=== PATIENT | male | born 1960 | race Caucasian/White ===

== ENCOUNTER 2017-12-08 14:50 | Inpatient (IN) | payer BC ==
--- OUTSIDE RECORDS SUMMARY | 2017-12-08 15:19 | XMS REPORT ---
:1960 External Reference #:[id number] Author Organization [employer] Address [address] [place] [address] [place] [address] Phone [phone] Care Team Providers Name Role Phone Rufus Cash MD Primary Care Physician Unavailable Payers Type Date Identification Numbers Payment Provider Subscriber Workers Compensation Onset: Policy Number: Abilio Borja 2017 [id number] [employer] PayID: [id number] [facility] [address] [place] [address] Medigap Part B Policy Number: [id number] BS Facets Peter Borja PayID: [id number] [address] [address] [place] [address] Problems Date Description Provider Status Onset: 11/14/2017 Contusion of left wrist, subsequent Michael Dunaway M.D. Active encounter Onset: 10/17/2017 Sprain of other part of left wrist and Michael Dunaway M.D. 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 ETOH Use Drinks Alcoholic Beverages Rarely Smoking Patient is a current smoker, smokes every day Recreational Drug Use Denies Drug Use Exercise Type/Frequency Exercises rarely Allergies, Adverse Reactions, Alerts Date Description Reaction Status Severity Comments 10/17/2017 Morphine active Medications Medication Date Status Form Strength Qnty SIG Indications Ordering Provider Omeprazole Active Capsules DR 20mg 1 by Unknown 000 mouth every day Aspirin Active Chewtabs 81mg 1 by Unknown Childrens 000 mouth every day Sucralfate 00/00/0 Active Tablets 1gm 1 tab Unknown 000 twice a day Augmentin Active Tablets 875-125mg 1 tablet Unknown 000 by mouth q12 hours for 10 days Tessalon Active Capsules 100mg 1-2 by Unknown Perles 000 mouth three times a day as needed Gallbladder Hx Pt. not Unknown Med 000 sure of name of med Vital Signs Date Vital Result Comment 12/08/2017 Height 66 inches 5'6" Weight 171.00 lb Heart Rate 80 /min BP Systolic 156 mmHg BP Diastolic 86 mmHg Respiratory Rate 16 /min Body Temperature 97.9 F BMI (Body Mass Index) 27.6 kg/m2 12/05/2017 Height 66 inches 5'6" Weight 174.00 lb Heart Rate 72 /min BP Systolic Recheck 132 mmHg BP Diastolic Recheck 84 mmHg Respiratory Rate 16 /min Body Temperature 97.4 F BMI (Body Mass Index) 28.1 kg/m2 11/14/2017 Height 66 inches 5'6" Weight 178.00 lb Heart Rate 76 /min BP Systolic Recheck 132 mmHg BP Diastolic Recheck 84 mmHg Respiratory Rate 16 /min Body Temperature 97.8 F BMI (Body Mass Index) 28.7 kg/m2 10/31/2017 Height 66 inches 5'6" Weight 178.00 lb Heart Rate 76 /min BP Systolic Recheck 124 mmHg BP Diastolic Recheck 78 mmHg Respiratory Rate 16 /min Body Temperature 97.8 F BMI (Body Mass Index) 28.7 kg/m2 10/17/2017 Height 66 inches 5'6" Weight 169.00 lb Heart Rate 76 /min BP Systolic Recheck 132 mmHg BP Diastolic Recheck 84 mmHg Respiratory Rate 16 /min Body Temperature 97.8 F BMI (Body Mass Index) 27.3 kg/m2 Results Description No Information Procedures Date CPT Code Description Status 12/05/2017 46518 Short Arm Cast Application Completed Encounters Type Date Location Provider CPT E/M Dx Office Visit 11/14/2017 [facility] Michael Dunaway 84211 S60.212D 3:00p Of [facility] S63.8x2D Office Visit 10/31/2017 8:45a [facility] Michael Dunaway 05146 S63.8x2D Of [facility] Lobato M.D. Office Visit 10/17/2017 11:30a [facility] Michael Dunaway, 50746 S63.8x2A Of [facility] AT [facility] Plan of Care Future Appointment(s):12/26/2017 2:45 pm - Michael Dunaway M.D. at [facility] AT Wuuhhsuv45/12/2018 - Umer Tello MDK62.5 Hemorrhage of anus and rectum
--- OUTSIDE RECORDS SUMMARY | 2017-12-08 15:20 | XMS REPORT ---
:1960 External Reference #:[id number] Author Organization [employer] Address [address] [place] [address] [place] [address] Phone [phone] Care Team Providers Name Role Phone Wilton Torres MD Primary Care Physician Unavailable Payers Type Date Identification Numbers Payment Provider Subscriber Workers Compensation Onset: Policy Number: Abilio Borja 2017 [id number] [employer] PayID: [id number] [facility] [address] [place] [address] Problems Date Description Provider Status Onset: 11/14/2017 Contusion of left wrist, subsequent Michael Dunaway M.D. Active encounter Onset: 10/17/2017 Sprain of other part of left wrist and Michael Dunaway M.D. 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 not Unknown 000 sure of name of med Aspirin Active Chewtabs 81mg 1 by Unknown Childrens 000 mouth every day Vital Signs Date Vital Result Comment 12/05/2017 Height 66 inches 5'6" Weight 174.00 [...] Procedures Date CPT Code Description Status 12/05/2017 03982 Short Arm Cast Application Completed Encounters Type Date Location Provider CPT E/M Dx Office Visit 11/14/2017 [facility] Michael Dunaway 76647 S60.212D 3:00p Of [facility] AT [facility] S63.8x2D Office Visit 10/31/2017 8:45a [facility] Michael Dunaway 90495 S63.8x2D Of [facility] AT [facility] Office Visit 10/17/2017 11:30a [facility] Michael Dunaway 12809 S63.8x2A Of [facility] AT [facility] Plan of Care Future Appointment(s):12/26/2017 2:45 pm - Michael Dunaway M.D. at [facility] AT Xsjrhwot86/09/2018 - Michael Dunaway M.D.S63.8x2D Sprain of other part of left wrist and hand, subs encntrFollow up:3 weeks
--- OUTSIDE RECORDS SUMMARY | 2017-12-08 15:20 | XMS REPORT ---
:1960 External Reference #:[id number] Author Organization [employer] Address [address] [place] [address] Phone [phone] Care Team Providers Name Role Phone Wilton Torres MD Primary Care Physician Unavailable Payers Type Date Identification Numbers Payment Provider Subscriber Workers Compensation Onset: Policy Number: Abilio Borja 2017 [id number] [employer] [address] [facility] [address] [place] [address] Problems Date Description Provider Status Onset: 11/14/2017 Contusion of left wrist, subsequent Michael Dunaway M.D. Active encounter Onset: 10/17/2017 Sprain of other part of left wrist and Michael Dunaway M.D. 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 Office Visit 10/17/2017 [facility] Michael Dunaway, 20920 S63.8x2A 11:30a Of [facility] AT [facility] Plan of Care Future Appointment(s):12/05/2017 2:30 pm - Michael Dunaway M.D. at [facility] AT Hznrdcsz65/18/2018 - Michael Dunaway M.D.S60.212D Contusion of left wrist, subsequent munuycdhyY13.8x2D Sprain of other part of left wrist and hand, subs encntrFollow up:2 to 3 weeksRecommendations:Ice the wrist every night
[2017-12-08 16:30] LABS: ABS Basophils 0.1 10^3/ul (0-0.2); ABS Eosinophils 0.3 10^3/ul (0-0.6); ABS Lymphocytes 3.4 10^3/ul (1.0-4.8); ABS Monocytes 0.8 10^3/ul (0-0.8); ABS Neutrophils 5.9 10^3/ul (1.5-7.7); ABS Nucleated RBC 0 10^3/ul; Hematocrit 31 % (42-52); Hemoglobin 10.5 g/dl (14.0-18.0); Lymphocyte % 32.4 % (25-47); Mean Corpuscular HGB Conc 34 g/dl (31-36); Mean Corpuscular Hemoglobin 30 pg (27-31); Mean Corpuscular Volume 89 fL (80-94); Mean Platelet Volume 7.5 um3 (7.4-10.4); Nucleated Red Blood Cells % 0.1; Platelet Count 373 10^3/ul (150-450); Red Blood Count 3.46 10^6/ul (4.00-5.40); Red Cell Distribution Width 14 % (10.5-15); White Blood Count 10.4 10^3/ul (3.5-10.8)
[2017-12-08 16:42] LABS: INR 0.92 (0.77-1.02)
[2017-12-08 16:48] LABS: EGFR Non-African American 91.7 (>60)
--- NOTE | 2017-12-08 17:11 | ED ---
GI/ HPI - HPI Summary HPI Summary: Patient is a 56 y/o M w/ c/o maroon colored blood from rectum suddenly onsetting at 1515 two days ago. , Candis, is present in the room. He states that he has been filling the toilet with blood and notes that he soaked a blanket with blood last night. Past episodes of similar Sx are reported but " not like this". He denies abdominal pain, vomiting, fever but notes that patient has a high pain tolerance. Patient states he was seen by Dr. Cash in [place] who sent him to see Dr. Tello. Dr. Tello believes no surgical intervention is needed, sent patient to ED for treatment today when he noted maroon stool. PMHx of diverticulitis is endorsed, GI bleed Hx is denied. PMHx of bladder CA is noted, no chemo, no radiation, just surgery was done. PSHx of bowel resection in [place] due to diverticulitis, cholecystectomy, appendectomy , right elbow and right shoulder surgery, middle finger "sewn back on" and L4- L5 microdiscectomy are reported. He also reports Hx of hemorrhoids and banding of hemorrhoids. Patient has had bronchitis and a cough for the past three weeks but has not been taking his antibiotics until recently, stating he took amoxicillin of his 's for the past four days. He smokes, rarely consumes alcohol, denies other substances usage. FHx of colon cancer is denied, father had angina. FMHx of stroke is also noted. On triage, pain is denied, nothing is noted to aggravate/alleviate Sx. Home medications and allergies reviewed. Allergies/Adverse Reactions: Allergies Allergy/AdvReac Type Severity Reaction Status Date / Time morphine Allergy Nausea And Verified 12/08/17 15:01 Vomiting Home Medications: Home Medications Amoxicillin/Clavulanate TAB* [Augmentin TAB 875*] 875 mg PO BID 12/08/17 [ History Confirmed 12/08/17] Aspirin EC TAB* [Ecotrin EC Low Dose 81 MG*] 81 mg PO DAILY PRN 12/08/17 [ History Confirmed 12/08/17] Benzonatate CAP* [Tessalon 100 MG CAP*] 200 mg PO TID PRN 12/08/17 [History Confirmed 12/08/17] Ibuprofen TAB* [Advil TAB*] 200 mg PO Q8H PRN 12/08/17 [History Confirmed ] Omeprazole CAP* [Prilosec CAP* 20 MG] 20 mg PO DAILY 12/08/17 [History Confirmed 12/08/17] Sucralfate TAB* [Carafate*] 1 gm PO ACHS 12/08/17 [History Confirmed 12/08/17] - History of Current Complaint Chief Complaint: EDGIBleed Time Seen by Provider: 12/08/17 16:55 Stated Complaint: RECTAL BLEEDING Hx Obtained From: Patient, Family/Cam Maker - , Other: - Dr. Larry states Dr. Tello advised no surgical intervention needed. Onset/Duration: Started Days Ago - onset two days ago, Atraumatic, Still Present Timing: Constant Severity: Moderate Current Severity: None Pain Intensity: 0 Location of Pain: None Associated Signs and Symptoms: Positive: Blood w/Stool - he states he is just producing maroon colored blood when he has bowel movement, Cough. Negative: Vomiting, Fever, Abdominal Pain Aggravating Factor(s): Nothing Alleviating Factor(s): Nothing - Allergy/Home Medications Allergies/Adverse Reactions: Allergies Allergy/AdvReac Type Severity Reaction Status Date / Time morphine AdvReac Nausea And Verified 12/10/17 19:59 Vomiting Home Medications: Home Medications Omeprazole CAP* [Prilosec CAP* 20 MG] 20 mg PO DAILY 12/08/17 [History Confirmed 12/08/17] Sucralfate TAB* [Carafate*] 1 gm PO ACHS 12/08/17 [History Confirmed 12/08/17] PMH/Surg Hx/FS Hx/Imm Hx Previously Healthy: No Respiratory History: Reports: Other Respiratory Problems/Disorders - bronchitis GI History: Reports: Other GI Disorders - POSITIVE: diverticulitis, hemorrhoids NEGATIVE: GI bleed Sensory History: Denies: Hx Legally Blind Opthamlomology History: Denies: Hx Legally Blind - Surgical History Surgery Procedure, Year, and Place: bowel resection in [place] due to diverticulitis, cholecystectomy, appendectomy, right elbow and right shoulder surgery, middle finger sewn back on and L4-L5 microdiscectomy - Immunization History Immunizations Up to Date: Yes Infectious Disease History: No Infectious Disease History: Denies: Traveled Outside the [place] in Last 30 Days - Family History Known Family History: Positive: Other - father with angina, FHx of stroke, no FHx of colon CA - Social History Lives: With Family Alcohol Use: Rare Substance Use Type: Reports: None Smoking Status (MU): Heavy Every Day Tobacco Smoker Type: Cigarettes Review of Systems Negative: Fever Cardiovascular: Negative Positive: Cough Positive: Other - maroon colored blood with bowel movement . Negative: Abdominal Pain, Vomiting Musculoskeletal: Negative Skin: Negative Neurological: Negative Psychological: Normal All Other Systems Reviewed And Are Negative: Yes Physical Exam - Summary Physical Exam Summary: Appearance: Well-appearing, no pain distress, well-nourished, harsh congested cough, tachycardic Skin: Warm, color reflects adequate perfusion, dry Head: Normal Head/Face inspection, atraumatic Eyes: Conjunctiva clear ENT: Normal inspection Neck: Supple, no nodes, no JVD Respiratory: Lungs clear, normal breath sounds, no respiratory distress Cardio: tachycardic, No murmur, pulses normal, brisk capillary refill Abdomen: Soft, nontender, no masses, no guarding, no rebound, non-distended Bowel sounds: Present; rectal exam was done with Latricia as grain broker and market operator: no external hemorrhoids, prostate normal, sohail stool, stool GUAIAC +. Musculoskeletal: Strength Intact/ROM intact, no calf tenderness, no edema. Psychological: Normal Neuro: Alert, muscle tone normal, no focal deficit Triage Information Reviewed: Yes Vital Signs On Initial Exam: Initial Vitals Temp Pulse Resp BP Pulse Ox 97.0 F 103 16 162/99 98 12/08/17 14:56 12/08/17 14:56 12/08/17 14:56 12/08/17 14:56 12/08/17 14:56 Vital Signs Reviewed: Yes Diagnostics - Vital Signs Vital Signs Temp Pulse Resp BP Pulse Ox 12/08/17 14:56 97.0 F 103 16 162/99 98 - Laboratory Lab Results: Lab Results 12/08/17 12/08/17 12/08/17 Range/Units 16:19 16:19 16:19 WBC 10.4 (3.5-10.8) 10^3/ul RBC 3.46 L (4.00-5.40) 10^6/ul Hgb 10.5 L (14.0-18.0) g/dl Hct 31 L (42-52) % MCV 89 (80-94) fL MCH 30 (27-31) pg MCHC 34 (31-36) g/dl RDW 14 (10.5-15) % Plt Count 373 (150-450) 10^3/ul MPV 7.5 (7.4-10.4) um3 Neut % (Auto) 56.5 (38-83) % Lymph % (Auto) 32.4 (25-47) % [place] % (Auto) 7.5 H (0-7) % Eos % (Auto) 3.0 (0-6) % Baso % (Auto) 0.6 (0-2) % Absolute Neuts (auto) 5.9 (1.5-7.7) 10^3/ul Absolute Lymphs (auto) 3.4 (1.0-4.8) 10^3/ul Absolute Monos (auto) 0.8 (0-0.8) 10^3/ul Absolute Eos (auto) 0.3 (0-0.6) 10^3/ul Absolute Basos (auto) 0.1 (0-0.2) 10^3/ul Absolute Nucleated RBC 0 10^3/ul Nucleated RBC % 0.1 INR (Anticoag Therapy) 0.92 (0.77-1.02) APTT 33.3 (26.0-36.3) seconds Sodium 136 (135-145) mmol/L Potassium 4.1 (3.5-5.0) mmol/L Chloride 105 (101-111) mmol/L Carbon Dioxide 27 (22-32) mmol/L Anion Gap 4 (2-11) mmol/L BUN 20 (6-24) mg/dL Creatinine 0.86 (0.67-1.17) mg/dL Est GFR ( Amer) 110.9 (>60) Est GFR (Non-Af Amer) 91.7 (>60) BUN/Creatinine Ratio 23.3 H (8-20) Glucose 103 H (70-100) mg/dL Calcium 8.6 (8.6-10.3) mg/dL Total Bilirubin 0.30 (0.2-1.0) mg/dL AST 12 L (13-39) U/L ALT 8 (7-52) U/L Alkaline Phosphatase 68 (34-104) U/L Total Protein 5.9 L (6.4-8.9) g/dL Albumin 3.9 (3.2-5.2) g/dL Globulin 2.0 (2-4) g/dL Albumin/Globulin Ratio 2.0 (1-3) Result Diagrams: 12/10/17 05:57 12/09/17 04:31 Lab Statement: Any lab studies that have been ordered have been reviewed, and results considered in the medical decision making process. - Radiology CXR Xray Interpretation: No Acute Changes Radiology Interpretation Completed By: Radiologist - CXR showed no radiographic evidence for acute cardiopulmonary abnormality on this portable CXR. This report was reviewed by ed physician. - EKG 1725 Cardiac Rate: NL - rate of 93 bpm EKG Rhythm: Sinus Rhythm ST Segment: Non-Specific Ectopy: None EKG Interpretation: nl AVIVCT, nl QTc, nl axis, poor Rwave progress V1 and V2, no acute changes EKG Comparison: Other - no priors to compare Re-Evaluation - Re-Evaluation First Eval Re-Evaluation Time: 17:55 Change: Unchanged Comment: No abdominal pain, agrees to admission, advised to remain NPO GIGU Course/Dx - Course Assessment/Plan: Patient is a 56 y/o M w/ c/o maroon colored blood from rectum suddenly onsetting at 1515 two days ago. , Candis, is present in the room. He states that he has been filling the toilet with blood and notes that he soaked a blanket with blood last night. Past episodes of similar Sx are reported but "not like this". He denies abdominal pain, vomiting, fever but notes that patient has a high pain tolerance. Patient states he was seen by Dr. Cash in [place] who sent him to see Dr. Tello. Dr. Tello believes no surgical intervention is needed, sent patient to ED for treatment today. PMHx of diverticulitis is endorsed, GI bleed Hx is denied. PMHx of bladder CA is noted, no chemo, no radiation, just surgery was done. PSHx of bowel resection in [place] due to diverticulitis.. He also reports Hx of hemorrhoids and banding of hemorrhoids. Patient has had bronchitis and a cough for the past three weeks but has not been taking his antibiotics until recently , stating he took his 's amoxicillin for the past four days.. On physical exam, patient is noted not to be in pain distress, has a harsh congested cough, and is tachycardic. Abdomen is Soft, nontender, no masses, no guarding, no rebound, non-distended. Rectal exam was done with Daisy as grain broker and market operator: no external hemorrhoids, prostate normal, sohail stool, stool GUAIAC positive. CXR showed no radiographic evidence for acute cardiopulmonary abnormality on this portable CXR. This report was reviewed by ed physician. EKG showed NSR w/ rate of 93 bpm, nl AVIVCT, nl QTc, nl axis, poor Rwave progress V1 and V2, no acute changes, no priors to compare. Labs showed RBC 3.46, Hgb 10.5, Hct 31, AST 12, BUN/creatinine ratio 23.3. Stool occult blood was positive. 1713 Patients case discussed with Dr. Delaney, he recommends admission. 1718 Dr. Guerrero was consulted on patient case, Dr. Guerrero accepts for admission. Patient is agreeable with admission. Dx of GI bleed, bronchitis. - Diagnoses Differential Diagnoses - Male: Colitis, Enterocolitis, Esophagitis/Gastritis, Gastroenteritis (Bacterial), Gastroenteritis (Viral), Hemorrhoids, Ischemic Bowel, Ulcerative Colitis/Crohn's Disease Provider Diagnoses: GI bleed, Bronchitis - Physician Notifications Discussed Care Of Patient With: Young Delaney Time Discussed With Above Provider: 17:13 Instructed by Provider To: Other - 1713 Patients case discussed with Dr. Delaney, he recommends admission. 1718 Dr. Guerrero was consulted on patient case, Dr. Guerrero accepts for admission. Patient is agreeable with admission. - Critical Care Time Critical Care Time: 30-74 min - 30 minutes Discharge - Sign-Out/Discharge Documenting (check all that apply): Patient Departure - admit All imaging exams completed and their final reports reviewed: Yes - Discharge Plan Condition: Stable Disposition: ADMITTED TO [facility] - Billing Disposition and Condition Condition: STABLE Disposition: Admitted to [facility] - Attestation Statements Document Initiated by Scribe: Yes Documenting Scribe: Arnie Romero Provider For Whom Scribe is Documenting (Include Credential): Allie Cole MD Scribe Attestation: Arnie Singleton , scribed for Allie Cole MD on 12/11/17 at 2201. Scribe Documentation Reviewed: Yes Provider Attestation: The documentation as recorded by the scribe, Arnie Romero accurately reflects the service I personally performed and the decisions made by me, Allie Cole MD
--- NOTE | 2017-12-08 17:36 | RAD ---
INDICATION: GI bleed COMPARISON: None. TECHNIQUE: Single AP portable view of the chest was obtained. FINDINGS: Image quality is compromised due to the relative inferiority of a portable chest x-ray. The heart and mediastinum exhibit normal size and contour. The lungs are grossly clear. There is no evidence of a large pleural effusion. Visualized bones are normal for the patient's age. IMPRESSION: No radiographic evidence for acute cardiopulmonary abnormality on this portable chest x-ray.
[2017-12-08] MEDS ORDERED: Ondansetron INJ* 2 MG/ML VIAL IV PRN (18:17)
[2017-12-08] MEDS ORDERED: Acetaminophen TAB* 325 MG PO PRN (18:17)
[2017-12-08] MEDS ORDERED: Mouth Piece, Nicotine* 1 EACH CARTRIDGE INH PRN ×2 (18:43)
[2017-12-08] MEDS ORDERED: Nicotine Inhaler* 10 MG AMP INH PRN (18:43)
[2017-12-08] MEDS: NS 0.9% 1000 ML* 1,000 ML IV SCH (20:07)
--- NOTE | 2017-12-08 22:46 | HP ---
AMENDED REPORT NOW INCLUDES COSIGNER DESIGNATION CC: Dr. Cash.* HISTORY AND PHYSICAL: DATE OF ADMISSION: 12/08/17 PRIMARY CARE DOCTOR: Dr. Cash in [place]. MY ATTENDING PHYSICIAN WHILE IN THE HOSPITAL: Jovany Zambrano MD* (dictated by ANGELINE Nixon). CHIEF COMPLAINT: Hematochezia. HISTORY OF PRESENT ILLNESS: Mr. Borja is a 56-year-old male with past medical history significant only for recurrent diverticulitis with colon resection, degenerative disc disease and complications who comes to the emergency department with 3 days of hematochezia including bright red blood, maroon- colored stools and blood clots. Patient denies dizziness, chest pain, shortness of breath, dyspnea on exertion. The patient had the cough this has been ongoing for 3 weeks. The patient was prescribed antibiotics and antitussives for this. Patient takes an aspirin, which he stopped 3 days ago. The patient was prescribed ibuprofen, but does not take any [id number] pain medications. The patient has never had an episode like this. The patient has had several episodes of recurrent diverticulitis and has had a partial colectomy for this. The patient had a recent colonoscopy with his colectomy, which was in 2011 or 2012. The patient has had minor rectal bleeding in the past, which he associates with hemorrhoids and has never been persistent. The patient has had his gallbladder out and had an appendectomy. The patient has no family history of premature colon cancer. The patient has no fevers, chills , nausea, vomiting, abdominal pain. The patient had numerous bowel movements 3 days ago, fewer bowel movements yesterday and has not had any yet today. The patient states his bowel movements usually occur in the evening. The patient had to leave the interview to go to the bathroom, but states that he did not have bowel movement, he just had blood oozing from his rectum. Due to the concern for GI bleed with decreased hemoglobin, we are asked to evaluate for admission. PAST MEDICAL HISTORY: Recurrent diverticulitis, status colectomy, degenerative disk disease, status post microdiscectomy, GERD. PAST SURGICAL HISTORY: Colon resection, L4-L5 microdiscectomy, colonoscopy, appendectomy, and multiple musculoskeletal surgeries. HOME MEDICATIONS: 1. Omeprazole 20 mg p.o. daily. 2. Aspirin 81 mg p.o. daily, stopped 3 days ago. 3. Sucralfate 1 g p.o. q.h.s. Recently started medications: 1. Augmentin 875 mg p.o. b.i.d. 2. Benzonatate 100 mg p.o. t.i.d. as needed. 3. Ibuprofen 10 mg p.o. q.8 hours as needed. ALLERGIES: MORPHINE. FAMILY HISTORY: The patient's father is alive, but has chronic stable angina. The patient's mother is alive. The patient has a brother who has an AL on stroke. The patient's other siblings are healthy. The patient states that the stroke runs in his family including with his grandparents. SOCIAL HISTORY: The patient's smokes 3 quarters a pack a day. The patient drinks alcohol rarely and denies illicit drug use. The patient works at [employer]. The patient is , has 2 children. Surrogate decision maker will be his , Ese Borja. REVIEW OF SYSTEMS: A 14-point review of systems was reviewed and is negative except as above including negative for night sweats, weight loss, change in caliber of stools or other constitutional symptoms. PHYSICAL EXAMINATION GENERAL: The patient is a 56-year-old male, who appears stated age and sitting comfortably in bed in no acute distress. VITAL SIGNS: At the time of evaluation, temperature 97.0, pulse rate 92, respiratory rate 16, oxygen saturation 93% on room air, blood pressure 162/99. HEENT: Head: Normocephalic, atraumatic. Sclerae anicteric. No conjunctival injection. Nasal mucosa moist. Oral mucosa moist. No pharyngeal erythema, discharge, or exudate. NECK: Supple, nontender. No lymphadenopathy. No carotid bruit auscultated. No JVD. RESPIRATORY: Extra wheezes in bilateral middle lobes, diminished throughout. No other adventitious lung sounds. HEART: Regular rate and rhythm. No clicks, murmurs, gallops or rubs. Pulses 2 + in bilateral dorsalis pedis, posterior tibialis, and radial areas. ABDOMEN: Slight tenderness to palpation in the left lower quadrant. Hyperactive bowel sounds present in all 4 quadrants. No hepatosplenomegaly. No abdominal bruits auscultated. No hepatojugular reflux. GENITOURINARY: No suprapubic or CVA tenderness. SKIN: Clean, dry, intact. No rash. NEUROLOGIC: Cranial nerves II through XII intact. No focal deficits. Alert and oriented x3. PSYCHIATRIC: Pleasant and cooperative. DIAGNOSTIC STUDIES/LAB DATA: White blood cell count 10.4, hemoglobin 10.5, platelet count 373, INR 0.92, aPTT 33.3. Sodium 136, potassium 4.9, chloride 105, carbon dioxide 27, anion gap 4, BUN 20, creatinine 0.86, glucose 103, calcium 0.6, bilirubin 0.3, AST 12, ALT 8, alkaline phosphatase 68. Protein 5.9 , albumin 2.9, globulin 2.0. Chest x-ray: No radiographic evidence of cardiopulmonary abnormality. Electrocardiogram on 12/08/17 read as normal sinus rhythm, normal axis, no ST segment abnormalities, rate of 93, QTc of 419, possible left atrial enlargement. No other abnormalities. ASSESSMENT AND PLAN: Mr. Borja is a 56-old-male with past medical history significant only for multiple episodes of diverticulitis and tobacco abuse, who presented to the emergency department with 3 days of hematochezia. The patient is hemodynamically stable. The patient's hemoglobin is moderately reduced. The patient's bleeding is likely diverticular in origin. The patient will be admitted to the hospital for a gastrointestinal consult and close monitoring of serial hemoglobin, hematocrit and possible intervention if needed. 1. Gastrointestinal bleed. The patient's gastrointestinal bleed as above this is likely diverticular in origin. The patient has known diverticulosis due to history of recurrent diverticulitis. The patient has had a colonoscopy within past 6 years, this is unlikely due to colon cancer. However, patient would likely benefit from outpatient colonoscopy on a nonemergent basis. The patient will be seen in consultation by Gastroenterology. The patient will have hemoglobin, hematocrit every 6 hours. The patient will be transfused as needed. The patient will be given fluids for hemodynamic support. The patient is not on any blood thinners. The patient stopped his aspirin 6 days ago. The patient will have his dose of omeprazole dose doubly due to the possibility of quick transit upper gastrointestinal bleed, however, this is unlikely due to presence of hematochezia and unlikely source of gastrointestinal bleeding and there is no indication for imaging such as tagged red blood cell scan or CT angiogram of the abdomen at this time. The patient will be n.p.o. except for sips of water with medications due the need for possible intervention given acute decompensation. 2. Gastroesophageal reflux disease/complications from cholecystectomy. We will continue patient's omeprazole at double dose and sucralfate, the patient currently asymptomatic. 3. DVT prophylaxis. The patient will have SCDs in the setting of gastrointestinal bleed. The patient is at moderate risk. 4. Tobacco abuse. The patient will have nicotine inhaler available as needed. 5. Bronchitis. The patient was diagnosed with bronchitis with his primary care doctor yesterday and started on antibiotics. We will check procalcitonin x2. The patient will be continue on anti-tussives and mucolytics while in the hospital. If the patient's procalcitonin comes back positive, antibiotics should be continued. If it does not, it should be considered to stop these antibiotics. 6. Code status. The patient would like to be a full code. The patient's surrogate decision maker will be his as above. 7. Disposition: The patient is admitted inpatient. The patient will likely be here for greater than 2 midnights. TIME SPENT: Approximately 60 minutes were spent on this admission, 30 of which was spent [id number] with the patient obtaining history and physical. This plan was discussed with my attending, Dr. Jovany Zambrano, he is in agreement. ANGELINE NIXON [id number]/[facility] #: [id number] MTDD
[2017-12-08] MEDS: guaiFENesin ER TAB 600 MG PO SCH (23:45)
[2017-12-08] MEDS: Sucralfate TAB* 1 GM PO SCH (23:46)
[2017-12-08] MEDS: Amoxicillin/Clavulanate TAB* 875 MG PO SCH (23:46)
[2017-12-08] MEDS: Benzonatate CAP* 100 MG PO PRN (23:46)
[2017-12-09 00:28] LABS: Hematocrit 26 % (42-52); Hemoglobin 9.1 g/dl (14.0-18.0)
[2017-12-09] MEDS: NS 0.9% 1000 ML* 1,000 ML IV SCH ×3 (04:37→20:30)
[2017-12-09 04:55] LABS: ABS Basophils 0.1 10^3/ul (0-0.2); ABS Eosinophils 0.4 10^3/ul (0-0.6); ABS Monocytes 0.7 10^3/ul (0-0.8); ABS Nucleated RBC 0 10^3/ul; Eosinophil % 5.2 % (0-6); Hematocrit 27 % (42-52); Lymphocyte % 36.9 % (25-47); Mean Corpuscular HGB Conc 34 g/dl (31-36); Mean Corpuscular Hemoglobin 30 pg (27-31); Mean Corpuscular Volume 89 fL (80-94); Mean Platelet Volume 7.6 um3 (7.4-10.4); Nucleated Red Blood Cells % 0.1; Platelet Count 335 10^3/ul (150-450); Red Blood Count 2.99 10^6/ul (4.00-5.40); Red Cell Distribution Width 15 % (10.5-15); White Blood Count 8.2 10^3/ul (3.5-10.8)
[2017-12-09 05:09] LABS: EGFR Non-African American 105.7 (>60)
[2017-12-09] MEDS: Benzonatate CAP* 100 MG PO PRN ×3 (07:32→20:26)
[2017-12-09] MEDS: guaiFENesin ER TAB 600 MG PO SCH (07:32)
[2017-12-09] MEDS: Amoxicillin/Clavulanate TAB* 875 MG PO SCH (07:32)
[2017-12-09] MEDS: Sucralfate TAB* 1 GM PO SCH ×4 (07:32→20:26)
--- NOTE | 2017-12-09 08:40 | PN ---
Subjective Date of Service: 12/09/17 Interval History: Mr Borja reports that he is feeling well this morning other than his harsh, non -productive cough. He denies abdominal pain or nausea. He has not had a bowel movement overnight. He does not feel lightheaded or dizzy with ambulation. He further denies chest pain or SOB. Objective Active Medications: Acetaminophen (Tylenol Tab*) 650 mg PO Q6H PRN Amoxicillin/Clavulanate Potassium (Augmentin Tab*) 875 mg PO BID SHANTA Benzonatate (Tessalon Cap*) 200 mg PO TID PRN Device (Nicotine Mouth Piece*) 1 each INH .USE WITH NICOTROL PRN Guaifenesin (Mucinex*) 1,200 mg PO BID SHANTA Sodium Chloride (Ns 0.9% 1000 Ml*) 1,000 mls @ 150 mls/hr IV PER RATE SHANTA Lactated Ringer's (Lactated Ringers 1000 Ml Bag*) 1,000 mls @ 0 mls/hr IV WIDE OPEN SHANTA Nicotine (Nicotine Inhaler*) 10 mg INH Q2H PRN Ondansetron HCl (Zofran Inj*) 4 mg IV Q6H PRN Sucralfate (Carafate*) 1 gm PO ACHS SHANTA Vital Signs: Temp Pulse Resp BP Pulse Ox 97.5 F 91 16 105/65 96 12/09/17 07:31 12/09/17 07:31 12/09/17 07:31 12/09/17 07:31 12/09/17 07:31 Oxygen Devices in Use Now: None Appearance: Male lying in bed in NAD Eyes: No Scleral Icterus Ears/Nose/Mouth/Throat: Mucous Membranes Moist Neck: Trachea Midline Respiratory: Symmetrical Chest Expansion and Respiratory Effort, Clear to Auscultation Cardiovascular: NL Sounds; No Murmurs; No JVD, No Edema Abdominal: NL Sounds; No Tenderness; No Distention Lymphatic: No Cervical Adenopathy Extremities: No Edema Skin: No Rash or Ulcers Neurological: Alert and Oriented x 3, NL Muscle Strength and Tone Nutrition: Taking PO's Result Diagrams: 12/09/17 04:31 12/09/17 04:31 Additional Lab and Data: . Microbiology and Other Data: . Assess/Plan/Problems-Billing Assessment: Mr. Borja is a 56 yo M with a PMH of recurrent diverticulitis s/p partial colectomy and GERD with recent diagnosis of bronchitis who was admitted on 12/08 with hematochezia and concern for lower GI diverticular bleeding with anemia. - Patient Problems (1) GI bleed Comment: - Hgb on arrival 10.5, now 9.0. SBP soft at 80-100 overnight, not tachycardic. - GI consult appreciated. Suspect diverticular bleed due to hx of diverticulitis. No abdominal pain, fever or leukocytosis to suggest diverticulitis. - Continue IV fluids. Monitor overnight, if stable will discharge with plan for outpatient colonoscopy. (2) Anemia Comment: - Due to acute blood loss from GI bleed. - Will transfuse for Hgb < 8 if symptomatic. (3) GERD (gastroesophageal reflux disease) Comment: - Continue omeprazole and sucralfate per home routine. (4) Bronchitis Comment: - Procalcitonin negative, afebrile, no leukocytosis, chest xray negative. Lungs clear to auscultation. - No evidence of bacterial component, stop antibiotics and continue antitussives. (5) DVT prophylaxis Comment: - SCDs. (6) Full code status Comment: Status and Disposition: Inpatient. Anticipate discharge to home when medically stable.
--- NOTE | 2017-12-09 13:48 | CONS ---
CC: Luis Alfredo Live CONSULTATION REPORT: DATE OF CONSULT: 12/09/17 REQUESTING PHYSICIAN: Dr. Cole in the emergency room. INDICATION: Diverticular bleed. NARRATIVE: Mr. Borja is a pleasant 56-year-old gentleman, who has a history of recurrent diverticul itis with a partial colectomy approximately 5 to 6 years ago. He states at that time he had a colonos copy that was his last colonoscopy and other than diverticulosis it was unremarkable. The patient st ates approximately 2 to 3 days ago he started having bright red blood per rectum and dark stools. He went to his primary care physician. The primary care physician then sent him to Dr. Tello for e valuation. Dr. Tello did a rectal exam and did not find any obvious source of bleeding, but did maroon stools and sent him to the emergency room. In the emergency room, the patient was found to alexis ve a hemoglobin of 10.5 and was admitted to the hospital. The patient denies any abdominal pain what soever. No nausea, no vomiting, no hematemesis. He rarely takes nonsteroidals. He states that he h as had bleeding, but never like this before. No fevers, no chills. He was admitted last night and g iven fluids. His hemoglobin has decreased to 9. He states that he did have a bowel movement this mo rning that was mainly just bloody clots. He is hungry. He denies any other symptoms. He had no oth er pain. PAST MEDICAL HISTORY: Significant for diverticulosis and herniated discs. PAST SURGICAL HISTORY: Surgeries include hemicolectomy, microdiscectomy, appendectomy. MEDICATIONS: Include: 1. Omeprazole. 2. Aspirin. 3. Carafate. 4. Augmentin. ALLERGIES: To MORPHINE. FAMILY HISTORY: Coronary artery disease, strokes. SOCIAL HISTORY: He continues to smoke cigarettes. I counseled him against this. Rarely drinks alcoh ol. REVIEW OF SYSTEMS: Twelve systems were reviewed and other than that mentioned in the HPI were unrema rkable. PHYSICAL EXAM: Temperature is 97.5, blood pressure is 105/65, pulse is 91, respiratory rate of 16, O 2 sat of 96%. General: Well-appearing male, lying flat in bed, alert, oriented, pleasant, fluent. HEENT: Mucous membranes are moist without lesions, ulcers, or exudate. Neck is supple. Trachea is midline. Head is normocephalic, atraumatic. Heart: Regular rate and rhythm. No murmurs, rubs, or gallops. Lungs: Clear to auscultation bilaterally. No wheezes, rales, or rhonchi. Abdomen is obes e. Positive bowel sounds. Soft, slight right-sided tenderness. He states that this is his usual pa in, has not changed at all. No rebound, no guarding. Skin is warm and dry. LABORATORY DATA: Of note, hemoglobin was 10.5 and has dropped to 9.1 at midnight and then 9.0 at 4:3 0 this morning, white count is 8.2, platelets are 335. INR is 0.92. BUN went from 20 to 14, creatin ine 0.86 to 0.76. ASSESSMENT AND PLAN: This is a pleasant 56-year-old gentleman presents with lower GI bleeding, likel y is diverticular in nature. Unlikely to be a malignancy or a polyp, does not appear to be hemorrhoi d from the surgical evaluation. He does need a colonoscopy at some point. He is recovering from bro nchitis right now. One would like to give that a little bit longer to recover. I think we can wait a few days for colonoscopy. I would like to let him eat today. If he does well meaning the bleeding slows down, hemoglobin remains stable, he can likely be discharged to home tomorrow and then he can follow up with me for an outpatient colonoscopy in the next 1 to 2 weeks. We will continue to follow along. [id number]/[facility] #: [id number]
[2017-12-09 15:01] LABS: Hematocrit 25 % (42-52); Hemoglobin 8.4 g/dl (14.0-18.0)
[2017-12-09] MEDS: GuaiFENesin DM* 5 ML UDC PO PRN ×2 (17:11→20:27)
[2017-12-09 17:54] LABS: Hematocrit 27 % (42-52); Mean Corpuscular HGB Conc 34 g/dl (31-36); Mean Corpuscular Hemoglobin 30 pg (27-31); Mean Corpuscular Volume 89 fL (80-94); Mean Platelet Volume 7.4 um3 (7.4-10.4); Platelet Count 356 10^3/ul (150-450); Red Blood Count 2.99 10^6/ul (4.00-5.40); Red Cell Distribution Width 14 % (10.5-15); White Blood Count 8.8 10^3/ul (3.5-10.8)
[2017-12-10 00:21] LABS: Hematocrit 25 % (42-52); Hemoglobin 8.6 g/dl (14.0-18.0)
[2017-12-10] MEDS: GuaiFENesin DM* 5 ML UDC PO PRN (03:22)
[2017-12-10] MEDS: NS 0.9% 1000 ML* 1,000 ML IV SCH (03:23)
[2017-12-10 06:19] LABS: Hematocrit 27 % (42-52); Hemoglobin 9.1 g/dl (14.0-18.0)
[2017-12-10] MEDS: Sucralfate TAB* 1 GM PO SCH (07:27)
--- NOTE | 2017-12-10 08:23 | PN ---
Subjective Date of Service: 12/10/17 Interval History: Mr. Borja denies complaint. He reports no further bowel movements or blood per rectum since yesterday. He denies chest pain, SOB, nausea, or abdominal pain. Objective Active Medications: Acetaminophen (Tylenol Tab*) 650 mg PO Q6H PRN Benzonatate (Tessalon Cap*) 200 mg PO TID PRN Device (Nicotine Mouth Piece*) 1 each INH .USE WITH NICOTROL PRN Guaifenesin/Dextromethorphan (Robitussin Dm*) 10 ml PO Q4H PRN Sodium Chloride (Ns 0.9% 1000 Ml*) 1,000 mls @ 150 mls/hr IV PER RATE SHANTA Nicotine (Nicotine Inhaler*) 10 mg INH Q2H PRN Ondansetron HCl (Zofran Inj*) 4 mg IV Q6H PRN Sucralfate (Carafate*) 1 gm PO ACHS SHANTA Vital Signs: Temp Pulse Resp BP Pulse Ox 97.9 F 79 16 127/59 96 12/10/17 03:16 12/10/17 03:16 12/10/17 03:16 12/10/17 03:16 12/10/17 03:16 Oxygen Devices in Use Now: None Appearance: Male sitting up in bed in NAD Eyes: No Scleral Icterus Ears/Nose/Mouth/Throat: Mucous Membranes Moist Neck: Trachea Midline Respiratory: Symmetrical Chest Expansion and Respiratory Effort, Clear to Auscultation Cardiovascular: NL Sounds; No Murmurs; No JVD, No Edema Abdominal: NL Sounds; No Tenderness; No Distention Extremities: No Edema Skin: No Rash or Ulcers Neurological: Alert and Oriented x 3, NL Muscle Strength and Tone Nutrition: Taking PO's Result Diagrams: 12/10/17 05:57 12/09/17 04:31 Additional Lab and Data: . Microbiology and Other Data: . Assess/Plan/Problems-Billing Assessment: Mr. Borja is a 56 yo M with a PMH of recurrent diverticulitis s/p partial colectomy and GERD with recent diagnosis of bronchitis who was admitted on 12/08 with hematochezia and concern for lower GI diverticular bleeding with anemia. - Patient Problems (1) GI bleed Comment: - Hgb on arrival 10.5, now 9.1. Not hypotensive or tachycardic. - GI consult appreciated. Suspect diverticular bleed due to hx of diverticulitis. No abdominal pain, fever or leukocytosis to suggest diverticulitis. - GI recommends discharge to home with close follow up outpatient for colonoscopy. (2) Anemia Comment: - Stable. - Due to acute blood loss from GI bleed. (3) GERD (gastroesophageal reflux disease) Comment: - Continue omeprazole and sucralfate per home routine. (4) Bronchitis Comment: - Procalcitonin negative, afebrile, no leukocytosis, chest xray negative. Lungs clear to auscultation. - No evidence of bacterial component, stop antibiotics and continue antitussives. (5) DVT prophylaxis Comment: - SCDs. (6) Full code status Comment: Status and Disposition: Inpatient. Discharge to home.
[2017-12-10 12:12] VITALS: BP 142/89
--- NOTE | 2017-12-10 12:20 | DS ---
AMENDED REPORT NOW INCLUDES DESIGNATED COSIGNER CC: Dr. Rufus Cash* [facility] MEDICINE DISCHARGE SUMMARY: DATE OF ADMISSION: 12/08/17 DATE OF DISCHARGE: 12/10/17 PRIMARY CARE PHYSICIAN: Dr. Rufus Cash. ATTENDING PHYSICIAN: Alexis Guerrero MD* (dictation provided by Rozina Galvin NP ) PRIMARY DIAGNOSES: 1. Lower GI bleed suspected diverticular in origin. 2. Acute blood loss anemia, stable. SECONDARY DIAGNOSES: 1. History of recurrent diverticulitis status post colectomy. 2. Degenerative disk disease. 3. Status post microdiskectomy. 4. Gastroesophageal reflux disease. MEDICATIONS AT THE TIME OF DISCHARGE: 1. Omeprazole 20 mg p.o. daily. 2. Sucralfate 1 g p.o. q.a.c. and h.s. 3. Benzonatate 200 mg p.o. t.i.d. p.r.n. 4. Guaifenesin DM 10 mL p.o. q.4 hours p.r.n. HOSPITAL COURSE: Mr. Borja is a 56-year-old with past medical history of diverticulitis, who presented to the hospital on 12/08/17 with concern for hematochezia. Please see the dictated H and P from Jovany aZmbrano MD for complete details. In brief, the patient states he had 3 days of bright red blood red and maroon-colored stools prior to arrival. He denied dizziness, chest pain, shortness of breath, or dyspnea on exertion, but did report an ongoing cough for the past 3 weeks. He had been prescribed antibiotics and antitussives the day prior to arrival to the ED for this cough. The patient did take aspirin daily, which he had stopped 3 days prior to admission. He denied dizziness or lightheadedness. In the emergency room, the patient had labs, which showed a hemoglobin of 10.5 with hematocrit of 31. His blood pressure was initially in the 160s systolically, but did fall shortly after arrival down into the 80s overnight. The patient was given aggressive IV fluid hydration. The following morning he had hemoglobin of 9.0 and 27. He was seen in consultation by Dr. Young Delaney from the gastroenterology team. He agreed based on the patient's history that this was likely diverticular in origin. The patient had 1 more bowel movement with blood clots noted during this hospitalization, but has none since yesterday. His hemoglobin and hematocrit have remained stable and this morning, they are 9.1 and 27. The patient is completely asymptomatic, ambulating in and around the hospital independently. His blood pressure is now 134/58 with the heart rate of 74. In regards to his cough, a chest xray was checked and was negative for evidence of pneumonia. He was afebrile and had no leukocytosis. His procalcitonin was 0.1. Therefore, antibiotics which were started outpatient were discontinued and antitussives were continued. Mr. Borja is medically stable for discharge to home. He will be following closely with Dr. Delaney who has recommended an outpatient colonoscopy. Again, he is asymptomatic. He has no nausea, vomiting, or abdominal pain. He has no evidence of infection to suggest diverticulitis. DISPOSITION: Home. DIET: Regular. ACTIVITY: As tolerated. FOLLOWUP PLANS: 1. Please follow up with Dr. Delaney. The patient is to call Monday if he does not hear from Dr. Delaney's office and has been provided with the phone number. 2. Please follow up with Dr. Rufus Cash's office in the next 3 to 7 days regarding his acute stay in the hospital. TIME SPENT: Approximately 60 minutes were spent on the discharge of this patient, more than half the time was spent with the patient at the bedside reviewing the events leading up to this hospitalization, and during this hospitalization performing the physical examination and reviewing the plan of care. ROZINA GALVIN NP [id number]/[facility] #: [id number] DANA
== END 2017-12-10 12:10 | disposition home or self-care (01) | DRG 244 ==
LOC: ED 14:50 → MED 18:19
PROVIDERS: ADMIT Internal Medicine; ATTEND Internal Medicine
DX: K57.31 Diverticulosis of large intestine without perforation or abscess with bleeding (principal); D62 Acute posthemorrhagic anemia; J40 Bronchitis, not specified as acute or chronic; K92.1 Melena; M51.36 Other intervertebral disc degeneration, lumbar region; K21.9 Gastro-esophageal reflux disease without esophagitis; F17.210 Nicotine dependence, cigarettes, uncomplicated; Z79.82 Long term (current) use of aspirin; Z79.899 Other long term (current) drug therapy; Z88.5 Allergy status to narcotic agent; Z82.3 Family history of stroke; Z82.49 Family history of ischemic heart disease and other diseases of the circulatory system
CPT/HCPCS: 36415; 71045; 80048; 80053; 82272; 83735; 84145; 85014; 85018; 85025; 85027; 85610; 85730; 86850; 86900; 86901; 93005; 99283; 99406; A9270-GY

== ENCOUNTER 2017-12-10 17:54 | Inpatient (IN) | payer BC ==
[2017-12-10] MEDS: NS 0.9% 1000 ML* 2,000 ML IV ONE (18:33)
--- NOTE | 2017-12-10 18:45 | ED ---
GI/ HPI - HPI Summary HPI Summary: The patient is a 56 y/o M presenting to [facility] accompanied by with a chief complaint of GI bleed starting today around 1500 after being discharged from the hospital this morning for the same symptoms. The bleeding started after he ate eggs and toast. He reports bright red blood with stool, and an increase in urgency to use the bathroom. He has achy diffuse abd pain. The pain is currently rated 3/10 in severity. He has hx of diverticulitis with bowel resection. - History of Current Complaint Chief Complaint: EDGIBleed Time Seen by Provider: 12/10/17 18:17 Stated Complaint: RECTA BLEEDING Hx Obtained From: Patient Onset/Duration: Started Hours Ago - at 1500, Still Present Timing: Lasting Hours Severity: Moderate Current Severity: Moderate Vaginal Bleeding Description: Bright Red Pain Intensity: 3 Location of Pain: Diffuse Pain Characteristics: Aching Associated Signs and Symptoms: Positive: Bright Red Blood w/Stool, Abdominal Pain. Negative: Fever Aggravating Factor(s): Nothing Alleviating Factor(s): Nothing - Additional Pertinent History Primary Care Physician: [id number] - Allergy/Home Medications Allergies/Adverse Reactions: Allergies Allergy/AdvReac Type Severity Reaction Status Date / Time morphine AdvReac Nausea And Verified 12/10/17 19:59 Vomiting PMH/Surg Hx/FS Hx/Imm Hx Cardiovascular History: Reports: Hx Hypercholesterolemia Respiratory History: Reports: Hx Chronic Bronchitis - 11/2017, Other Respiratory Problems/Disorders - bronchitis GI History: Reports: Hx Gall Bladder Disease - Sugey, Hx Gastroesophageal Reflux Disease, Hx Gastrointestinal Bleed - 11/2017, Other GI Disorders - POSITIVE: diverticulitis NEGATIVE: GI bleed History: Reports: Other Problems/Disorders - Bladder cancer Musculoskeletal History: Reports: Hx Arthritis, Hx Back Problems - L4-5 diskectomy, Hx Orthopedic Injury - Left wrist fracture, right shoulder repain Denies: Other Musculoskeletal History Sensory History: Denies: Hx Contacts or Glasses, Hx Legally Blind, Hx Hearing Aid, Other Sensory Impairments Opthamlomology History: Denies: Hx Contacts or Glasses, Hx Legally Blind, Other Sensory Impairments Neurological History: Reports: Hx Migraine - Occular, Other Neuro Impairments/ Disorders - Numbness of anterior calves Denies: Hx Seizures - Cancer History Cancer Type, Location and Year: Bladder cancer Hx Hematologic Symptoms: No Hx Chemotherapy: No Hx Radiation Therapy: No Hx Palliative Cancer Treatment: No - Surgical History Surgery Procedure, Year, and Place: bowel resection in [place] due to diverticulitis, cholecystectomy, appendectomy, right elbow and right shoulder surgery, middle finger sowed back on and L4-L5 microdiscectomy Hx Anesthesia Reactions: No Infectious Disease History: No Infectious Disease History: Denies: Traveled Outside the [place] in Last 30 Days - Family History Known Family History: Positive: Other - father with angina, FHx of stroke, no FHx of colon CA - Social History Alcohol Use: Rare Hx Substance Use: No Substance Use Type: Reports: None Smoking Status (MU): Heavy Every Day Tobacco Smoker Type: Cigarettes Have You Smoked in the Last Year: Yes Review of Systems Negative: Fever Positive: Abdominal Pain - diffuse, Other - bright red bleeding with stool, increased urgency All Other Systems Reviewed And Are Negative: Yes Physical Exam - Summary Physical Exam Summary: Appearance: The patient is well-nourished in no acute distress and in no acute pain. Skin: The skin is warm and dry and skin color is pale. HEENT: The head is normocephalic and atraumatic. The pupils are equal and reactive. The conjunctivae are clear and without drainage. Nares are patent and without drainage. Mouth reveals moist mucous membranes and the throat is without erythema and exudate. The external ears are intact. The ear canals are patent and without drainage. The tympanic membranes are intact. Neck: The neck is supple with full range of motion and non-tender. There are no carotid bruits. There is no neck vein distension. Respiratory: Chest is non-tender. Lungs are clear to auscultation and breath sounds are symmetrical and equal. Cardiovascular: Heart is tachycardic. There is no murmur or rub auscultated. There is no peripheral edema and pulses are symmetrical and equal. Abdomen: The abdomen is soft and non-tender. There are normal bowel sounds heard in all four quadrants and there is no organomegaly palpated. Musculoskeletal: There is no back tenderness noted. Extremities are non-tender with full range of motion. There is good capillary refill. There is no peripheral edema or calf tenderness elicited. Neurological: Patient is alert and oriented to person, place and time. The patient has symmetrical motor strength in all four extremities. Cranial nerves are grossly intact. Deep tendon reflexes are symmetrical and equal in all four extremities. Psychiatric: The patient has an appropriate affect and does not exhibit any anxiety or depression. Triage Information Reviewed: Yes Vital Signs On Initial Exam: Initial Vitals Temp Pulse Resp BP Pulse Ox 96.1 F 126 18 150/95 97 12/10/17 17:59 12/10/17 17:59 12/10/17 17:59 12/10/17 17:59 12/10/17 17:59 Vital Signs Reviewed: Yes Diagnostics - Vital Signs Vital Signs Temp Pulse Resp BP Pulse Ox 12/10/17 18:10 105 17 12/10/17 18:08 15 140/78 12/10/17 17:59 96.1 F 126 18 150/95 97 - Laboratory Result Diagrams: 12/10/17 18:46 Lab Statement: Any lab studies that have been ordered have been reviewed, and results considered in the medical decision making process. GIGU Course/Dx - Course Course Of Treatment: Mr. Borja came back with some additional rectal bleeding which was bright red. He was a little bit tachycardic and only complaining of some mild discomfort in the left lower quadrant. IV was established she was given fluids while a repeat H&H was obtained. Dr. Delaney was contacted as was the hospitalist for admission. - Diagnoses Provider Diagnoses: GI bleed - Physician Notifications Discussed Care Of Patient With: Yougn Delaney Time Discussed With Above Provider: 18:50 Instructed by Provider To: Other - I consulted with Dr. Delaney, who wants the patient to be admitted. - Critical Care Time Critical Care Time: 30-74 min Discharge - Sign-Out/Discharge Documenting (check all that apply): Patient Departure - Patient will be admitted to [facility] for further care. - Discharge Plan Condition: Stable Disposition: ADMITTED TO [facility] Referrals: Rufus Cash MD [Primary Care Provider] - - Billing Disposition and Condition Condition: STABLE Disposition: Admitted to [facility] - Attestation Statements Document Initiated by Joelleiblola: Yes Documenting Scribe: Amanda Yanez Provider For Whom Alban is Documenting (Include Credential): Dr. Yash Betancourt MD Scribe Attestation: Amanda Singleton scribed for Dr. Yash Betancourt MD on 12/10/17 at 2118. Scribe Documentation Reviewed: Yes Provider Attestation: The documentation as recorded by the Amanda ortiz accurately reflects the service I personally performed and the decisions made by me, Dr. Yash Betancourt MD
[2017-12-10 18:55] LABS: ABS Basophils 0 10^3/ul (0-0.2); ABS Eosinophils 0.3 10^3/ul (0-0.6); ABS Lymphocytes 2.2 10^3/ul (1.0-4.8); ABS Monocytes 0.8 10^3/ul (0-0.8); ABS Neutrophils 7.5 10^3/ul (1.5-7.7); ABS Nucleated RBC 0 10^3/ul; Eosinophil % 2.3 % (0-6); Hematocrit 27 % (42-52); Hemoglobin 9.2 g/dl (14.0-18.0); Lymphocyte % 20.2 % (25-47); Mean Corpuscular HGB Conc 34 g/dl (31-36); Mean Corpuscular Hemoglobin 31 pg (27-31); Mean Corpuscular Volume 90 fL (80-94); Mean Platelet Volume 7.3 um3 (7.4-10.4); Nucleated Red Blood Cells % 0; Platelet Count 440 10^3/ul (150-450); Red Blood Count 3.02 10^6/ul (4.00-5.40); Red Cell Distribution Width 15 % (10.5-15); White Blood Count 10.8 10^3/ul (3.5-10.8)
[2017-12-10] MEDS ORDERED: Al Hydrox/Mg Hydrox/Simet LIQ* 30 ML UDC PO PRN (19:41)
[2017-12-10] MEDS ORDERED: Acetaminophen TAB* 325 MG PO PRN (19:41)
[2017-12-10] MEDS ORDERED: oxyCODONE/Acetamin 5/325 MG* TAB PO PRN (19:41)
[2017-12-10] MEDS ORDERED: Albuterol 2.5 MG/3 ML NEB.SOL* (0.083%) INH PRN (19:41)
[2017-12-10] MEDS ORDERED: Ondansetron INJ* 2 MG/ML VIAL IV PRN (19:41)
[2017-12-10] MEDS ORDERED: Ondansetron INJ* 2 MG/ML VIAL ONE (19:52)
[2017-12-10] MEDS ORDERED: Ondansetron INJ* 2 MG/ML VIAL IV ONE (19:52)
[2017-12-10] MEDS ORDERED: NS 0.9% 1000 ML* 1,000 ML IV ONE (20:04)
[2017-12-10] MEDS: Sucralfate TAB* 1 GM PO SCH (21:27)
--- NOTE | 2017-12-10 22:14 | HP ---
AMENDED REPORT NOW INCLUDES COSIGNER DESIGNATION CC: Dave Doss; Dr. Young Delaney, GI* ADMISSION HISTORY AND PHYSICAL: DATE OF ADMISSION: 12/10/17 ADMITTING HOSPITALIST: Dr. Rayna Cash* (dictated by ANGELINE Mitchell). PRIMARY CARE PROVIDER: Dave oDss. PRIMARY TENNIS CENTRE MANAGER: Dr. Young Delaney. CHIEF COMPLAINT: Lower GI bleed. HISTORY OF PRESENT ILLNESS: Mr. Borja is a 56-year-old gentleman, who was admitted to the hospital 3 days ago with complaints of bright red blood per rectum. The patient was found to be stabilized and was seen by Dr. Delaney in consultation and plans were made for him to follow up with Gastroenterology as an outpatient for colonoscopy. The patient was discharged earlier this morning. He had repeated hemoglobin and hematocrit check that showed he was hemodynamically stable with no recurrent bright red blood per rectum. He was eventually discharged in a stable condition and he tells me that he went home, took it easy, sat on his couch and had an egg sandwich for lunch. Shortly after his meal, he had some urgency to go to the bathroom and passed some dark maroon colored stool that eventually transformed to bright red blood per rectum. He had 2 episodes at home and he was worried, then he came to the emergency room and had 2 more bright red blood per rectum episodes with passing of some clots as well. He denied any chest pain, shortness of breath, headache , dizziness, or any other associated symptoms. He had some left lower quadrant abdominal pain and also had 1 episode of nausea in the emergency room. There were no other alarming symptoms. He was found to have stable vitals with no evidence of tachycardia or hypotension. Given his recurrent lower GI bleed, we were asked to see the patient to consider readmission for further evaluation. It is to be noted that the patient has history of recurrent diverticulitis for which he had colectomy at [facility] 5 years ago. Prior to his lower GI bleed 3 days ago, he has never experienced any significant rectal bleeding beside occasional minor bleeding that was associated with hemorrhoids on and off for the past few years. He received no blood transfusion during his admission 2 days ago. His hemoglobin and hematocrit were rechecked this afternoon, revealed value of 9.2 and 27 respectively, which has not changed at all since his discharge this morning. I did touch base with Dr. Delaney this evening who agreed that the patient need to be readmitted, obtain a couple of hemoglobin and hematocrit recheck, IV fluid, and clear liquid diet, and he is planning to see him tomorrow, initiate bowel prep for possible colonoscopy on Monday. PAST MEDICAL HISTORY: As mentioned above significant for: 1. Two separate episodes of lower GI bleed. 2. Recurrent diverticulitis for which he had a sigmoid colectomy 5 years ago. 3. Cholecystectomy. 4. Appendectomy. 5. Degenerative disk disease. 6. Status post microdiskectomy. 7. GERD. PAST SURGICAL HISTORY: Significant for: 1. Colon resection. 2. L4-L5 microdiskectomy. 3. Appendectomy. 4. Multiple musculoskeletal surgeries. 5. His last colonoscopy was done around 2011 or 2012 with no evidence of any significant polyps. CURRENT MEDICATIONS: His medications at home include: 1. Omeprazole 20 mg p.o. daily. 2. Carafate 1 g p.o. q.a.c. and q.h.s. 3. He also takes aspirin 81 mg p.o. daily, which has been on hold for the past week. ALLERGIES: He is allergic to MORPHINE. FAMILY HISTORY: Denies any family history of colorectal malignancies. SOCIAL HISTORY: The patient is a current smoker about 3 quarter a pack per day. He drinks alcohol rarely and denies illicit drug use. 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 , has 2 children. Surrogate decision maker will be his , Ese, and he wishes to be a full code. REVIEW OF SYSTEMS: See HPI. Otherwise, 12-point review of systems was examined and they were essentially negative. PHYSICAL EXAMINATION GENERAL: He is a pleasant middle-aged gentleman, appears healthy, and in no acute distress or discomfort at the time of admission. VITAL SIGNS: Most recent set of vitals was temperature of 96.1, pulse of 95, blood pressure of 139/78, respirations of 10, and O2 sat of 98% on room air. HEENT: Head is normocephalic, atraumatic. Sclerae anicteric. PERRLA. EOMs intact. Oropharynx is pink and moist. NECK: Supple. Trachea midline. No cervical adenopathy, thyromegaly, or JVD. LUNGS: Clear to auscultation bilaterally. HEART: Regular rate and rhythm. Normal S1 and S2 without rubs, murmurs, or gallops. ABDOMEN: Soft and nondistended. There is minimal left lower quadrant tenderness on deep palpation but no guarding, rigidity, or rebound tenderness. There are no hernias, masses, or hepatosplenomegaly. BACK: With normal curvature and no CVA tenderness. EXTREMITIES: Without cyanosis, clubbing, or edema. NEUROLOGIC: He is awake, alert, and oriented x3. Handgrip is equal bilaterally. Cranial nerves II through XII are grossly intact and sensation is intact throughout. RECTAL: Deferred until time of colonoscopy. LABORATORY DATA: CBC this evening at 1800 with hemoglobin of 9.2, hematocrit of 27, platelets of 440, and white count of 10,800, which has not changed since his discharge this morning despite his lower GI bleed episodes. IMPRESSION: A 56-year-old gentleman with history of recurrent diverticulitis for which he had sigmoid colectomy 5 years ago as well as history of gastroesophageal reflux disease and degenerative joint disease, who returned to the emergency room after being discharged earlier this morning with recurrent lower gastrointestinal bleed and will be admitted under hospitalist service for the following: ASSESSMENT AND PLAN: 1. Lower gastrointestinal bleed. The patient appeared to be hemodynamically stable with good maintaining blood pressure as well as no evidence of tachycardia. I will continue giving him IV fluid boluses and maintain a rate of normal saline at 125 mL an hour. I discussed the case with Dr. Delaney, who will see the patient tomorrow in consultation. He advised to keep him on clear liquid and possibly initiate bowel prep tomorrow and anticipate to do a colonoscopy or at least a flexible sigmoidoscopy by Monday. The patient understood and he is in agreement with the following plan. I will keep him on his Carafate given his history of gastroesophageal reflux disease as well. I will type and screen him in anticipation for possible blood transfusion if indicated and I will check his hemoglobin and hematocrit once again at midnight and full lab check at 6 o'clock tomorrow morning. 2. Gastroesophageal reflux disease. The patient with history of gastroesophageal reflux disease complicated after his cholecystectomy. I will continue his omeprazole and Carafate, and he is currently asymptomatic with no evidence of epigastric pain. 3. DVT prophylaxis in the setting of lower gastrointestinal bleed. I will keep him only on SCDs for the time being. 4. Tobacco abuse. The patient will have nicotine inhaler available as needed. 5. Code status. He wishes to be a full code. 6. Disposition. Admit for observation, possibly convert to inpatient. Get GI consultation in the morning. Possible colonoscopy after bowel prep. Possible blood transfusion. The patient is currently stable hemodynamically and we will observe him closely overnight. TIME SPENT: Approximately 60 minutes spent on this admission for which 50% of that time on obtaining history and performing physical exam. The case was discussed with my attending and he is in agreement. ANGELINE MITCHELL [id number]/[facility]PS #: [id number] DANA
[2017-12-11 00:23] LABS: Hematocrit 22 % (42-52); Hemoglobin 7.4 g/dl (14.0-18.0)
[2017-12-11] MEDS: Sucralfate TAB* 1 GM PO SCH ×4 (05:51→20:40)
[2017-12-11 07:19] LABS: ABS Basophils 0.1 10^3/ul (0-0.2); ABS Eosinophils 0.4 10^3/ul (0-0.6); ABS Lymphocytes 2.6 10^3/ul (1.0-4.8); ABS Monocytes 0.8 10^3/ul (0-0.8); ABS Neutrophils 6.2 10^3/ul (1.5-7.7); ABS Nucleated RBC 0 10^3/ul; Eosinophil % 4.1 % (0-6); Hematocrit 25 % (42-52); Hemoglobin 8.2 g/dl (14.0-18.0); Lymphocyte % 25.9 % (25-47); Mean Corpuscular HGB Conc 34 g/dl (31-36); Mean Corpuscular Hemoglobin 30 pg (27-31); Mean Corpuscular Volume 89 fL (80-94); Mean Platelet Volume 7.1 um3 (7.4-10.4); Nucleated Red Blood Cells % 0.1; Platelet Count 433 10^3/ul (150-450); Red Blood Count 2.75 10^6/ul (4.00-5.40); Red Cell Distribution Width 15 % (10.5-15); White Blood Count 10.2 10^3/ul (3.5-10.8)
[2017-12-11 07:35] LABS: EGFR Non-African American 102.6 (>60)
[2017-12-11] MEDS: Omeprazole CAP* 20 MG PO SCH (09:03)
--- NOTE | 2017-12-11 11:46 | PN ---
Subjective Date of Service: 12/11/17 Interval History: Mr. Borja reports feeling well this morning, though is frustrated about being back in the hospital. He reports that after leaving the hospital yesterday, he ate lunch and shortly thereafter had a large bloody BM. He reports having another episode in the ER last night, but nothing further since arriving on the floor. He denies pain. Denies SOB, CP, N/V, dizziness or lightheadedness. Per nursing, patient left the floor earlier to walk his outside and reportedly smoked a cigarette. Family History: Unchanged from Admission Social History: Unchanged from Admission Past Medical History: Unchanged from Admission Objective Active Medications: Acetaminophen (Tylenol Tab*) 650 mg PO Q4H PRN Al Hydrox/Mg Hydrox/Simethicone (Maalox Plus*) 30 ml PO Q6H PRN Albuterol (Ventolin 2.5 Mg/3 Ml Neb.Helen*) 2.5 mg INH RT.[id number] AWAKE PRN Sodium Chloride (Ns 0.9% 1000 Ml*) 1,000 mls @ 125 mls/hr IV PER RATE SHANTA Omeprazole (Prilosec Cap*) 20 mg PO DAILY SHANTA Ondansetron HCl (Zofran Inj*) 4 mg IV Q4H PRN Oxycodone/Acetaminophen (Percocet 5/325 Tab*) 1 tab PO Q4H PRN Sucralfate (Carafate*) 1 gm PO 0600,1100,1600,2100 [facility] Vital Signs - 8 hr 12/11/17 11:15 Temperature 97.6 F Pulse Rate 77 Respiratory 20 Rate Blood Pressure 117/70 (mmHg) O2 Sat by Pulse 98 Oximetry Oxygen Devices in Use Now: None Appearance: Middle-aged male sitting in bed in no acute distress Eyes: No Scleral Icterus Ears/Nose/Mouth/Throat: NL Teeth, Lips, Gums, Mucous Membranes Moist Neck: NL Appearance and Movements; NL JVP, Trachea Midline Respiratory: Symmetrical Chest Expansion and Respiratory Effort, Clear to Auscultation Cardiovascular: NL Sounds; No Murmurs; No JVD, RRR, No Edema Abdominal: No Hepatosplenomegaly, - - Nondistended, tender to deep palpation throughout, worst in the LUQ Extremities: No Clubbing, Cyanosis Skin: No Rash or Ulcers, - - Plaster cast in place to L wrist Neurological: Alert and Oriented x 3, NL Sensation Lines/Tubes/Other Access: Clean, Dry and Intact Peripheral IV Nutrition: Taking PO's Result Diagrams: 12/11/17 06:54 12/11/17 06:54 Assess/Plan/Problems-Billing Assessment: Mr. Borja is a 56yo with PMH of diverticulitis s/p colectomy and GERD who was hospitalized at [facility] from 12/08/17 to 12/10/17 with a GI bleed, sent home, and experienced blood per rectum shortly after d/c, now readmitted with GI bleed. - Patient Problems (1) Lower GI bleed Current Visit: Yes Status: Acute Priority: High Code(s): K92.2 - GASTROINTESTINAL HEMORRHAGE, UNSPECIFIED SNOMED Code(s): 44420380 Comment: - Possibly diverticular in nature - Hemodynamically stable, last H&H - Continue to trend H&H; may need transfusion if Hgb <7 - Clear liquids - Appreciate GI consult; likely plan for colonoscopy tomorrow (2) History of diverticulitis of colon Current Visit: Yes Status: Chronic Priority: High Code(s): Z87.19 - PERSONAL HISTORY OF OTHER DISEASES OF THE DIGESTIVE SYSTEM SNOMED Code(s): 927771724153681 Comment: - S/p sigmoid colectomy 5 years ago, no further episode since that time (3) Tobacco dependence Current Visit: Yes Status: Chronic Priority: Medium Code(s): F17.200 - NICOTINE DEPENDENCE, UNSPECIFIED, UNCOMPLICATED SNOMED Code(s): 34618326 Comment: - Nicotine patch (4) GERD (gastroesophageal reflux disease) Current Visit: Yes Status: Chronic Priority: Medium Code(s): K21.9 - GASTRO-ESOPHAGEAL REFLUX DISEASE WITHOUT ESOPHAGITIS SNOMED Code(s): 803373802 Comment: - Continue omeprazole and sucralfate (5) Full code status Current Visit: No Status: Acute Code(s): Z78.9 - OTHER SPECIFIED HEALTH STATUS SNOMED Code(s): 631005071 (6) DVT prophylaxis Current Visit: Yes Status: Acute Priority: High Code(s): JCS7005 - SNOMED Code(s): 763190644 Comment: - SCDs Status and Disposition: Inpatient. Plan for colonoscopy tomorrow.
[2017-12-11] MEDS: Nicotine PATCH 14 MG/24 HR* PATCH TRANSDERM SCH (12:55)
[2017-12-11] MEDS ORDERED: PEG 3000 GI LAVAGE* 1 GALLON PO ONE (13:48)
[2017-12-11] MEDS: NS 0.9% 1000 ML* 1,000 ML IV SCH (13:57)
[2017-12-11 17:33] LABS: Hematocrit 24 % (42-52); Hemoglobin 8.1 g/dl (14.0-18.0)
--- NOTE | 2017-12-11 17:50 | CONS ---
CC: Dr. Rufus Cash.* CONSULTATION REPORT: DATE OF CONSULT: 12/11/17 REQUESTING PHYSICIAN: Dr. Betancourt, in the emergency room. INDICATION: Bright red blood per rectum. NARRATIVE: Mr. Borja is a pleasant 56-year-old gentleman, well known to myself. I saw him in the hospital for a suspected diverticular bleed. He was discharged on the morning of 12/10/17. His hemoglobin had been stable. He had not been having any bleeding for 24 hours. He went home. He states that he ate eggs and Burkinan muffins and then started bleeding again. He came back to the emergency room. He describes it as bright red, again no pain whatsoever. In the emergency room, his hemoglobin was initially found to be 9.2 and then it fell. He was admitted to the hospital. He is feeling well at this point. He just has some bloating. PAST MEDICAL HISTORY: Significant for herniated discs and diverticulosis. PAST SURGICAL HISTORY: Hemicolectomy, microdiscectomy, discectomy, appendectomy. MEDICATIONS: Include: 1. Carafate. 2. Aspirin. 3. Omeprazole. 4. Augmentin. ALLERGIES: To MORPHINE. FAMILY HISTORY: Strokes, coronary artery disease. SOCIAL HISTORY: He smokes tobacco. Rarely drinks alcohol. REVIEW OF SYSTEMS: A 12 systems were reviewed and other than that mentioned in the HPI were unremarkable. PHYSICAL EXAM: Temperature is 97.6, blood pressure is 117/70, pulse is 77, respiratory rate of 20, O2 sat of 98%. General: Well-appearing male, in no apparent distress, alert, oriented, pleasant, fluent. HEENT: Mucous membranes are moist without lesions, ulcers, or exudate. Neck is supple. Trachea is midline. Head is normocephalic, atraumatic. Heart: Regular rate and rhythm. Lungs: Clear to auscultation bilaterally. No wheezes, rales, or rhonchi. Abdomen with positive bowel sounds. Soft, nontender, nondistended. No hepatosplenomegaly, masses, rebound or guarding. Skin is warm and dry. LABORATORY DATA: Of note, hemoglobin went from 9.2 to 7.4 to 8.2. Platelets are normal at 433. Chemistry show a calcium of 8.3, BUN 9. ASSESSMENT AND PLAN: A pleasant 56-year-old gentleman with again presumed diverticular bleeding. He had been readmitted to the hospital after going home and bleeding again. We will prep him today for a colonoscopy tomorrow. [id number]/[facility] #: [id number] DANA
[2017-12-11] MEDS: Nicotine Patch Removal NOTE FOLLOW UP SCH (20:40)
[2017-12-12] MEDS: NS 0.9% 1000 ML* 1,000 ML IV SCH (02:53)
[2017-12-12] MEDS: Sucralfate TAB* 1 GM PO SCH ×4 (05:53→21:08)
[2017-12-12 07:05] LABS: ABS Basophils 0 10^3/ul (0-0.2); ABS Eosinophils 0.4 10^3/ul (0-0.6); ABS Lymphocytes 2.2 10^3/ul (1.0-4.8); ABS Monocytes 0.6 10^3/ul (0-0.8); ABS Neutrophils 4.2 10^3/ul (1.5-7.7); ABS Nucleated RBC 0 10^3/ul; Eosinophil % 5.1 % (0-6); Hematocrit 21 % (42-52); Hemoglobin 7.3 g/dl (14.0-18.0); Lymphocyte % 29.2 % (25-47); Mean Corpuscular HGB Conc 35 g/dl (31-36); Mean Corpuscular Hemoglobin 31 pg (27-31); Mean Corpuscular Volume 91 fL (80-94); Mean Platelet Volume 7.4 um3 (7.4-10.4); Nucleated Red Blood Cells % 0.2; Platelet Count 399 10^3/ul (150-450); Red Blood Count 2.31 10^6/ul (4.00-5.40); Red Cell Distribution Width 15 % (10.5-15); White Blood Count 7.4 10^3/ul (3.5-10.8)
[2017-12-12 07:12] LABS: EGFR Non-African American 114.4 (>60)
[2017-12-12] MEDS: Nicotine PATCH 14 MG/24 HR* PATCH TRANSDERM SCH (08:00)
[2017-12-12] MEDS: Omeprazole CAP* 20 MG PO SCH (08:01)
[2017-12-12] MEDS ORDERED: fentaNYL* 50 MCG/ML 2 ML VIAL (100 MCG VIAL) ONE (08:51)
[2017-12-12] MEDS ORDERED: Midazolam* 1 MG/ML 10 ML VIAL (10 MG) ONE (08:51)
--- NOTE | 2017-12-12 10:58 | PN ---
Subjective Date of Service: 12/12/17 Interval History: Mr. Borja is anxious to return home. Feels better than yesterday. He is back from colonoscopy this morning. Slightly drowsy. He denies pain. No further bleeding since last night. Denies SOB, N/V, dizziness. Family History: Unchanged from Admission Social History: Unchanged from Admission Past Medical History: Unchanged from Admission Objective Active Medications: Acetaminophen (Tylenol Tab*) 650 mg PO Q4H PRN Al Hydrox/Mg Hydrox/Simethicone (Maalox Plus*) 30 ml PO Q6H PRN Albuterol (Ventolin 2.5 Mg/3 Ml Neb.Helen*) 2.5 mg INH [id number] AWAKE PRN Sodium Chloride (Ns 0.9% 1000 Ml*) 1,000 mls @ 125 mls/hr IV PER RATE SHANTA Nicotine (Nicotine Patch 14 Mg/24 Hr*) 1 patch TRANSDERM DAILY SHANTA Omeprazole (Prilosec Cap*) 20 mg PO DAILY SHANTA Ondansetron HCl (Zofran Inj*) 4 mg IV Q4H PRN Oxycodone/Acetaminophen (Percocet 5/325 Tab*) 1 tab PO Q4H PRN Pharmacy Profile Note (Nicotine Patch Removal Note*) 1 note FOLLOW UP 2100 [facility] Sucralfate (Carafate*) 1 gm PO 0600,1100,1600,2100 [facility] Vital Signs - 8 hr 12/12/17 12/12/17 12/12/17 04:27 08:07 10:15 Temperature 97.4 F 97.3 F 97.9 F Pulse Rate 73 72 82 Respiratory 20 18 18 Rate Blood Pressure 133/48 142/73 122/65 (mmHg) O2 Sat by Pulse 100 99 98 Oximetry Oxygen Devices in Use Now: None Appearance: Middle-aged male laying in bed in NAD Eyes: No Scleral Icterus Ears/Nose/Mouth/Throat: NL Teeth, Lips, Gums, Mucous Membranes Moist Neck: NL Appearance and Movements; NL JVP, Trachea Midline Respiratory: Symmetrical Chest Expansion and Respiratory Effort, Clear to Auscultation Cardiovascular: NL Sounds; No Murmurs; No JVD, RRR, No Edema Abdominal: No Hepatosplenomegaly, - - Slightly tender to deep palpation throughout, improved since yesterday Extremities: No Clubbing, Cyanosis Skin: No Rash or Ulcers Neurological: Alert and Oriented x 3, NL Sensation, NL Gait Lines/Tubes/Other Access: Clean, Dry and Intact Peripheral IV Nutrition: Taking PO's Result Diagrams: 12/12/17 05:40 12/12/17 05:40 Assess/Plan/Problems-Billing Assessment: Mr. Borja is a 56yo with PMH of diverticulitis s/p colectomy and GERD who was hospitalized at [facility] from 12/08/17 to 12/10/17 with a GI bleed, sent home, and experienced blood per rectum shortly after d/c, now readmitted with GI bleed. 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 , s/p clipping (2) History of diverticulitis of colon Current Visit: Yes Status: Chronic Priority: High Code(s): Z87.19 - PERSONAL HISTORY OF OTHER DISEASES OF THE DIGESTIVE SYSTEM SNOMED Code(s): 460041762899348 Comment: - S/p sigmoid colectomy 5 years ago, no further episodes since that time (3) Tobacco dependence Current Visit: Yes Status: Chronic Priority: Medium Code(s): F17.200 - NICOTINE DEPENDENCE, UNSPECIFIED, UNCOMPLICATED SNOMED Code(s): 14644835 Comment: - Nicotine patch (4) GERD (gastroesophageal reflux disease) Current Visit: Yes Status: Chronic Priority: Medium Code(s): K21.9 - GASTRO-ESOPHAGEAL REFLUX DISEASE WITHOUT ESOPHAGITIS SNOMED Code(s): 009075344 Comment: - Continue omeprazole and sucralfate (5) Full code status Current Visit: No Status: Acute Code(s): Z78.9 - OTHER SPECIFIED HEALTH STATUS SNOMED Code(s): 850629984 (6) DVT prophylaxis Current Visit: Yes Status: Acute Priority: High Code(s): VPN6462 - SNOMED Code(s): 624304023 Comment: - SCDs Status and Disposition: Inpatient. Plan for d/c tomorrow morning as long as there is no further episodes of GI bleed.
[2017-12-12 16:22] LABS: Hematocrit 23 % (42-52)
[2017-12-12] MEDS: Nicotine Patch Removal NOTE FOLLOW UP SCH (21:14)
[2017-12-13] MEDS: Sucralfate TAB* 1 GM PO SCH (07:23)
[2017-12-13] MEDS: Omeprazole CAP* 20 MG PO SCH (07:37)
[2017-12-13] MEDS: Nicotine PATCH 14 MG/24 HR* PATCH TRANSDERM SCH (07:38)
[2017-12-13 08:11] LABS: ABS Basophils 0.1 10^3/ul (0-0.2); ABS Eosinophils 0.4 10^3/ul (0-0.6); ABS Lymphocytes 2.4 10^3/ul (1.0-4.8); ABS Monocytes 0.7 10^3/ul (0-0.8); ABS Neutrophils 6.3 10^3/ul (1.5-7.7); ABS Nucleated RBC 0 10^3/ul; Eosinophil % 3.6 % (0-6); Hematocrit 24 % (42-52); Hemoglobin 8.4 g/dl (14.0-18.0); Lymphocyte % 24.7 % (25-47); Mean Corpuscular HGB Conc 34 g/dl (31-36); Mean Corpuscular Hemoglobin 31 pg (27-31); Mean Corpuscular Volume 90 fL (80-94); Nucleated Red Blood Cells % 0; Platelet Count 481 10^3/ul (150-450); Red Blood Count 2.71 10^6/ul (4.00-5.40); Red Cell Distribution Width 15 % (10.5-15); White Blood Count 9.9 10^3/ul (3.5-10.8)
[2017-12-13 09:12] VITALS: BP 139/61
[2017-12-13] MEDS ORDERED: Multivitamins/Minerals TAB PO SCH (10:00)
--- NOTE | 2017-12-13 15:39 | PRO ---
DATE: 12/12/17 - ROOM #[id number] Referring physician; Rufus Cash [place] PROCEDURE: Colonoscopy and ileoscopy with clipping of cecal cap, punctate arteriole with streaming bleeding. 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 His hemoglobin was initially 10.5 but settled out 24 hours after admission at 9.0. He was sent home but came back to the hospital with more signs of bleeding, though he was hemodynamically stable and his hemoglobin only went as low as 8.6. He had a few more loose stools and his hemoglobin ebony was 7.6. He, however, did not need any transfusion as the next hemoglobin at 6 a.m. yesterday morning was 8.2. He did prep for a colonoscopy. He says the prep cleaned out the dark red and black material and then he was passing green and bluish material corresponding to the Gatorade color he was having but then by this morning it was basically straw-colored or clear. He had a sigmoid colectomy 6 years ago in [place] because of a recurring diverticulitis. He has not had a colonoscopy since then. Informed consent was obtained with an opportunity for questions, special concerns, and discussion regarding appropriate discharge time. He has been on a baby aspirin for a couple of years because of the strong family history of strokes. He has not taken that for 4 to 5 days and restarting it was discussed though not settled on. ENDOSCOPIST: Malik Infante MD. MEDICATIONS: Midazolam 7.5, fentanyl 100. FINDINGS: He is a mildly overweight exuberant middle-aged man in no distress. His abdomen is mildly obese, soft, and nontender. Rectal is normal with no residue. Initial views show an excellent prep and normal mucosa. There was a surgical anastomosis at about 20 cm. It was wide open without any granulomas or erythema. Above the anastomosis, there were a few small scattered diverticula but none had stigmata of bleeding and they were generally small and few in number. The cecum was reached and at the base an area with oozing blood was seen. It was coming out of a pinpoint opening. It appeared that this area had not actually been entered so that there was no possibility of trauma having given this appearance. Gentle lavage did not show any abrasion or slide-by effect and just oozing from the pinpoint opening. No AVM of typical appearance was seen in the cecal area. Nonetheless, the bleeding was compelling and two clips were applied on either side diagonally trying to grab tissue beneath the bleeding point. It appeared to be well aligned. Bleeding did not recur. Coming back slowly, no other bleeding sites were seen and no typical AVMs. The terminal ileum was viewed for about 25 cm and there was no bloody material coming from above. Final views in the rectum including retroflexion did show some small internal hemorrhoids. IMPRESSION: 1. Status post sigmoid colon resection with patent anastomosis. 2. Mild descending and transverse colon diverticulosis - no sign of bleeding. 3. Cecal pinpoint bleeding lesion - highly suspect to be the culprit. It has been clipped. 4. Prophylactic aspirin use - probably one additional week of no aspirin would be advisable. [id number]/[facility] #: [id number] [facility]Franc[facility]
--- NOTE | 2017-12-13 17:43 | CONS ---
GASTROENTEROLOGY CONSULT [place]: DATE OF CONSULT: CONSULTING PHYSICIANS: Alexis Guerrero; Rufus Cash, [place]. REASON FOR CONSULTATION: Lower GI bleeding. CONSULT FOLLOWUP: Yesterday after taking 90% of a 4 ltr prep, he had colonoscopy where blood was seen coming from a pinpoint opening in the cecum. It was clipped and no further bleeding was seen. It was interpreted as a Dieulafoy. Since that procedure over the next 24 hours, he has been on full liquids. He had one small movement about an hour after the procedure, which did not contain any blood and no subsequent movements. He feels well and strong. His hemoglobin which was 7.3 around 6 a.m. before the procedure, was 8.0 at 4 p.m. the afternoon of the procedure and then 8.4 this morning. He appears stable enough to go home. It is felt 90% likely that the lesion clipped was responsible for the episode. He does have a few diverticula, but none of them had any stigmata. It seems reasonable to have him go home on low dose 16 mg iron in a multivitamin twice a day and he can resume his low dose 81 mg aspirin prophylaxis in a week and return for followup in a month. He is going to get his gastro records from [place], where he had a sigmoid colectomy about 6 years ago. It is notable that his BUN, 20 five days ago, steadily fell despite continuing intermittent bleeding and was actually 7 the morning of the procedure. [id number]/[facility] #: [id number] DANA
--- NOTE | 2017-12-14 07:56 | DS ---
AMENDED REPORT NOW INCLUDES DESIGNATED COSIGNER - ESIGNED BEFORE ADJUSTMENT CC: Dave Doss; Dr. Malik Infante * DISCHARGE SUMMARY: DATE OF ADMISSION: 12/10/17 DATE OF DISCHARGE: 12/13/17 PRIMARY CARE PROVIDER: Dave Doss. BUNCH MAKER HAND: Dr. Malik Infante. ATTENDING PHYSICIAN: Dr. Sotelo * (dictated by Iraida Villagran NP). PRIMARY DIAGNOSES: 1. Lower gastrointestinal bleed due to Dieulafoy's lesion, status post endoclipping. 2. Tobacco dependence. SECONDARY DIAGNOSES: 1. History of diverticulitis, status post colectomy 5 years ago. 2. Gastroesophageal reflux disease. CONSULTATIONS WHILE IN THE HOSPITAL: 1. Dr. Delaney saw the patient in consultation on 12/11/17 due to a GI bleed. At that point, he recommended a colonoscopy the following day. PROCEDURES WHILE IN THE HOSPITAL: 1. The patient underwent a colonoscopy with Dr. Infante on 12/12/17, at which point, a Dieulafoy's lesion was found and clipped. DISCHARGE MEDICATIONS: New home medication: 1. Women's Multivitamin tablet, 1 tab p.o. b.i.d. Continued home medications: 1. Acetaminophen 650 mg p.o. q.4 hours p.r.n. 2. Omeprazole 20 mg p.o. daily. 3. Sucralfate 1 g p.o. a.c., h.s. HISTORY OF PRESENT ILLNESS AND HOSPITAL COURSE: Mr. Borja is a 56-year-old male with past medical history of recent GI bleed, GERD, and recurrent diverticulitis, status post colectomy 5 years ago, who presented to the emergency room on 12/10/17 with complaints of bright red blood per rectum. Please see the history and physical by ANGELINE Ochoa, for a complete summary of the events leading up to this hospitalization, but in short, the patient was hospitalized at [facility] from 12/08/17 to 12/10/17 for a GI bleed. He was discharged on 12/10/17. He returned home, reported eating lunch, and nearly immediately, experienced recurrent GI bleed. He returned to the hospital and was readmitted for a lower GI bleed. The patient received IV fluids and was placed on a clear liquid diet. His hemoglobin and hematocrit were checked b.i.d. while in the hospital with his results being 7.3 and 21. On the day of discharge, H and H is 8.4 and 24. The patient underwent a colonoscopy with Dr. Infante. As noted above, he was found to have a Dieulafoy's lesion, which was clipped. At that point, Dr. Infante recommended that the patient stay another night in the hospital to ensure that he had no further episodes of blood per rectum. The patient has not had any further episodes of GI bleeding since his colonoscopy procedure and because his H and H had improved, he was deemed stable for discharge home today. Recommendations from Dr. Infante include taking a Women's Multivitamin tab twice a day for iron supplementation rather than ferrous sulfate. The patient did require any nicotine patches while in the hospital to help with his nicotine cravings. Peter Borja is stable for discharge home today. Vital signs are as follows: Temp 97.9, heart rate 80, respiratory rate 14, oxygen saturation 95% on room air , blood pressure 139/61. DISCHARGE PLAN: Mr. Borja will be discharged to home. Activity will be as tolerated though he has been advised to not to do any strenuous activity for at least the next month due to his anemia. Diet will be regular as tolerated. Medications are noted above. The patient will take a Women's Multivitamin tab twice daily. He can resume his omeprazole and sucralfate. He will need to follow up with Dr. Infante in approximately 1 month. He will need to follow up with his PCP in approximately 4 to 7 days. The patient has been instructed to return to the emergency room or nearest hospital for any worsening of symptoms, shortness of breath, lightheadedness, dizziness, chest discomfort, high fevers, chills, night sweats, loss of consciousness, or any other worrisome signs or symptoms. This is a summarized report of a complex medical history and hospital stay. For further details, please see the entire medical record. TIME SPENT: Approximately 45 minutes was spent on this discharge, greater than half of that time was spent [id number] with the patient discussing discharge plans and instructions. IRAIDA VILLAGRAN, RESIDENTIAL BUILDER [id number]/[facility] #: [id number] DANA
== END 2017-12-13 10:45 | disposition home or self-care (01) | DRG 254 ==
LOC: ED 17:54 → MED 19:41 → OBSVTOIN 12-11 11:37
PROVIDERS: ADMIT Internal Medicine; ATTEND Student in an Organized Health Care Education/Training Program
PROC: 0W3P8ZZ Control Bleeding in Gastrointestinal Tract, Via Natural or Artificial Opening Endoscopic (ICD-10-PCS; principal; 2017-12-12)
DX: K63.81 Dieulafoy lesion of intestine (principal); K92.1 Melena; M51.36 Other intervertebral disc degeneration, lumbar region; K21.9 Gastro-esophageal reflux disease without esophagitis; F17.210 Nicotine dependence, cigarettes, uncomplicated; K57.30 Diverticulosis of large intestine without perforation or abscess without bleeding; Z87.19 Personal history of other diseases of the digestive system; Z79.82 Long term (current) use of aspirin; Z79.899 Other long term (current) drug therapy; Z88.5 Allergy status to narcotic agent
CPT/HCPCS: 36415; 80048; 85014; 85018; 85025; 99156; 99157; 99284; A9270-GY; J2250; J2405; J3010